=== PATIENT | female | born 1990 | race Caucasian/White ===

== ENCOUNTER 2018-02-26 05:50 | Outpatient (CLI) | payer OTHER | END 2018-02-26 10:20 | disposition home or self-care (01) | LOC: OBT 05:50 → L-D 05:50 → OBT 10:20 | DX: O62.9 Abnormality of forces of labor, unspecified (principal); Z3A.36 36 weeks gestation of pregnancy | CPT/HCPCS: 76818 ==

== ENCOUNTER 2018-02-28 09:09 | Inpatient (IN) | payer OTHER ==
[2018-02-28] MEDS: LACTATED RINGER'S 1,000 ML IV* ×4 (08:00→17:25)
[2018-02-28 10:27] LABS: ADD MAN DIFF? NO
[2018-02-28] MEDS ORDERED: IBUPROFEN 600 MG TAB PO (10:30)
[2018-02-28] MEDS ORDERED: LIDOCAINE 1% (MPF) 30 ML INJ INJ (10:30)
[2018-02-28] MEDS ORDERED: METHYLERGONOVINE 0.2 MG INJ IM ×2 (10:30→20:00)
[2018-02-28] MEDS ORDERED: BUTORPHANOL 2 MG INJ IV (10:30)
[2018-02-28] MEDS ORDERED: CARBOPROST 250 MCG INJ IM ×2 (10:30→20:00)
[2018-02-28] MEDS ORDERED: MISOPROSTOL 200 MCG TAB PR ×2 (10:30→20:00)
[2018-02-28] MEDS ORDERED: OXYTOCIN 30 UNITS/LR 500 ML IV ×2 (10:30→20:00)
[2018-02-28 10:33] LABS: WHITE BLOOD COUNT 10.8 10^3/ul (4.8-10.8)
[2018-02-28 10:33] LABS: BASOPHILS % 0.4 % (0.0-2.0); EOSINOPHILS % 0.3 % (0.0-7.0); HEMATOCRIT 33.2 % (37.0-47.0); HEMOGLOBIN 10.6 g/dl (12.0-16.0); LYMPHOCYTES # 2.2 10^3/ul (0.8-2.9); LYMPHOCYTES % 20.6 % (15.0-51.0); MEAN CORPUSCULAR HEMOGLOBIN 27.8 pg (29.0-33.0); MEAN CORPUSCULAR HGB CONC 31.9 g/dl (32.0-37.0); MEAN CORPUSCULAR VOLUME 87.1 fl (82.0-101.0); MONOCYTE # 0.7 10^3/ul (0.3-0.9); MONOCYTES % 6.5 % (0.0-11.0); NEUTROPHIL # 7.7 10^3/ul (1.6-7.5); NEUTROPHILS % 71.2 % (39.0-77.0); PLATELET COUNT 220 10^3/UL (140-415); RED BLOOD COUNT 3.81 10^6/ul (4.20-5.40); RED CELL DISTRIBUTION WIDTH 13.2 % (11.5-14.5)
[2018-02-28 10:52] LABS: INR 0.89; PROTIME 12.1 Sec (11.9-14.9); PT RATIO 0.9
[2018-02-28 10:53] LABS: PARTIAL THROMBOPLASTIN TIME 26.9 Sec (23.0-35.0)
[2018-02-28] MEDS ORDERED: FENTAnyl 2MCG/ML-ROPIV 0.2% 100 ML (11:48)
[2018-02-28] MEDS ORDERED: NALOXONE (0.4 MG/ML) INJ IV (12:00)
[2018-02-28] MEDS ORDERED: FENTAnyl 2MCG/ML-ROPIV 0.2% 100 ML BAG EPI (12:00)
[2018-02-28] MEDS: OXYTOCIN 30 UNITS/LR 500 ML IV ×4 (13:32→19:56)
[2018-02-28 15:35] LABS: RAPID PLASMA REAGIN NONREACTIVE (NR)
[2018-02-28] MEDS ORDERED: MAGNESIUM HYDROXIDE 30ML CUP PO (20:00)
[2018-02-28] MEDS ORDERED: HYDROCODONE/APAP (5/325) TAB PO (20:00)
[2018-02-28] MEDS ORDERED: ZOLPIDEM 5 MG TAB PO (20:00)
[2018-02-28] MEDS ORDERED: DIPHENHYDRAMINE 25 MG CAP PO (20:00)
[2018-02-28] MEDS ORDERED: SENNA/DOCUSATE NA (8.6MG/50MG) TAB PO (20:00)
[2018-02-28] MEDS ORDERED: ACETAMINOPHEN 325 MG TAB PO (20:00)
[2018-02-28] MEDS: BENZOCAINE 20% 56 ML SPRAY TOP (23:33)
[2018-02-28] MEDS: WITCH HAZEL/GLYCERIN PAD PR (23:33)
[2018-02-28] MEDS: IBUPROFEN 800 MG TAB PO (23:33)
[2018-02-28] MEDS: LANOLIN 7 GM TUBE TOP (23:33)
[2018-03-01] MEDS: IBUPROFEN 800 MG TAB PO ×4 (05:35→23:03)
[2018-03-01] MEDS: LACTATED RINGER'S 1,000 ML IV* ×3 (07:38→18:39)
[2018-03-01 08:57] LABS: ADD MAN DIFF? NO
[2018-03-01 09:04] LABS: WHITE BLOOD COUNT 12.3 10^3/ul (4.8-10.8)
[2018-03-01 09:04] LABS: BASOPHILS % 0.3 % (0.0-2.0); EOSINOPHILS % 0.1 % (0.0-7.0); HEMATOCRIT 30.1 % (37.0-47.0); HEMOGLOBIN 9.6 g/dl (12.0-16.0); LYMPHOCYTES # 1.9 10^3/ul (0.8-2.9); LYMPHOCYTES % 15.7 % (15.0-51.0); MEAN CORPUSCULAR HGB CONC 31.9 g/dl (32.0-37.0); MEAN CORPUSCULAR VOLUME 87.8 fl (82.0-101.0); MEAN PLATELET VOLUME 12.4 fl (7.4-10.4); MONOCYTE # 0.8 10^3/ul (0.3-0.9); MONOCYTES % 6.4 % (0.0-11.0); NEUTROPHIL # 9.4 10^3/ul (1.6-7.5); NEUTROPHILS % 76.6 % (39.0-77.0); PLATELET COUNT 189 10^3/UL (140-415); RED BLOOD COUNT 3.43 10^6/ul (4.20-5.40); RED CELL DISTRIBUTION WIDTH 13.4 % (11.5-14.5)
[2018-03-02] MEDS: IBUPROFEN 800 MG TAB PO ×2 (05:37→11:36)
[2018-03-02] MEDS: MEASLES,MUMPS,RUBELLA VACCINE INJ SC* (08:20)
[2018-03-02] MEDS: VARICELLA VACCINE LIVE/PF 1,350 UNIT/0.5 ML ML SC* (08:20)
[2018-03-02] MEDS: DIPHTH/TET/ACEL PERTUSS (ADULT) 0.5 ML VIAL IM* (08:20)
== END 2018-03-02 15:49 | disposition home or self-care (01) | DRG 775 ==
LOC: OBT 09:09 → L-D 09:09 → OBT 09:30 → L-D 09:30 → PP1 20:13
PROVIDERS: Obstetrics & Gynecology
PROC: 10E0XZZ Delivery of Products of Conception, External Approach (ICD-10-PCS; principal; 2018-02-28)
DX: O76 Abnormality in fetal heart rate and rhythm complicating labor and delivery (principal); Z3A.37 37 weeks gestation of pregnancy; Z37.0 Single live birth
CPT/HCPCS: 62319; 85025; 85610; 85730; 86592; 86850; 86900; 86901; 90715; 90716